=== PATIENT | female | born 1950 | race African-American/Black ===

== ENCOUNTER 2022-08-01 22:00 | Inpatient (IN) | payer MEDICARE, MEDICAID ==
[~2022-08-01] VITALS: Ht 170.2 cm; Wt 64.4 kg
[~2022-08-01 22:00] MED LIST: AMLO10TA4 PO; LEVO25TA7 PO
[2022-08-01 23:25] LABS: CHLORIDE 109 mEq/L (98-107)
[2022-08-01 23:52] LABS: EOSINOPHILS % 3.3 % (0.0-5.0); HEMATOCRIT. 40.7 % (36.0-48.0); HEMOGLOBIN. 13.6 g/dL (12.0-16.0); LYMPHOCYTES % 34.2 % (20.0-50.0); MEAN CORPUSCULAR VOLUME 98.9 fL (81.0-99.0); MEAN PLATELET VOLUME 9.2 fl (7.4-10.4); MONOCYTES % 5.9 % (2.0-8.0); NEUTROPHILS % 55.6 % (40.0-76.0); PLATELET 243 x1000/uL (130-400); RED BLOOD CELL COUNT 4.12 mill/uL (4.2-5.4); RED CELL DISTRIBUTION WIDTH 14.7 % (11.6-14.6)
[2022-08-02] MEDS ORDERED: ASPIRIN 325MG EC TABLET PO ONE (01:45)
[2022-08-02] MEDS ORDERED: ONDANSETRON HCL 4MG/2ML INJ IV PRN (15:30)
[2022-08-02] MEDS ORDERED: ACETAMINOPHEN 325MG TABLET PO PRN (15:30)
[2022-08-02] MEDS ORDERED: HYDRALAZINE 20MG/ML VIAL IV PRN (15:30)
[2022-08-02] MEDS: ENOXAPARIN 40MG/0.4ML SYR SUBCUT SCH (15:30)
[2022-08-02] MEDS ORDERED: IPRATROPIUM/ALBUTEROL 0.5-3(2.5)MG/3ML NEB HHN PRN (15:30)
[2022-08-02 16:17] LABS: T4 FREE 0.91 ng/dL (0.76-1.46)
[2022-08-02] MEDS ORDERED: ALBUTEROL (0.083%) 2.5MG/3ML NEB HHN PRN (17:45)
[2022-08-02] MEDS ORDERED: IPRATROPIUM BROMIDE (0.02%) 0.5MG/2.5ML NEB HHN PRN (17:45)
[2022-08-02 18:09] VITALS: BP 178/102
[2022-08-02 18:11] VITALS: BP 178/102
[2022-08-02 20:00] VITALS: BP 160/92
[2022-08-03] VITALS: BP 168/93
[2022-08-03 01:10] LABS: CREATINE KINASE MB FRACTION 1.6 ng/mL (0.5-3.6)
[2022-08-03 04:00] VITALS: BP 152/97
[2022-08-03 05:57] LABS: CREATINE KINASE MB FRACTION 1.5 ng/mL (0.5-3.6)
[2022-08-03] MEDS ORDERED: LEVOTHYROXINE SODIUM 175MCG TABLET PO SCH (06:30)
[2022-08-03 08:00] VITALS: BP 170/102
[2022-08-03 12:00] VITALS: BP 172/114
[2022-08-03] MEDS ORDERED: LOSARTAN POTASSIUM 50 MG TABLET PO SCH (12:15)
[2022-08-03] MEDS: ENOXAPARIN 40MG/0.4ML SYR SUBCUT SCH (15:31)
[2022-08-03] MEDS ORDERED: AMLODIPINE 5MG TABLET PO SCH (15:40)
[2022-08-03 16:00] VITALS: BP 144/102
[2022-08-03 17:45] VITALS: BP 144/102
== END 2022-08-03 18:36 | disposition home or self-care (01) | DRG 547 ==
LOC: ER 22:57 → MICUSO 08-02 01:56 → EDBEDREQ 08-02 02:17 → 7WST 08-02 17:36
PROVIDERS: ADMIT Internal Medicine; ATTEND Internal Medicine
PROC: 4A00X4Z Measurement of Central Nervous Electrical Activity, External Approach (ICD-10-PCS; principal; 2022-08-03)
DX: M06.9 Rheumatoid arthritis, unspecified (principal); M47.9 Spondylosis, unspecified; R53.1 Weakness; E03.9 Hypothyroidism, unspecified; I10 Essential (primary) hypertension; W18.30XA Fall on same level, unspecified, initial encounter; Y93.89 Activity, other specified; Y92.89 Other specified places as the place of occurrence of the external cause; Y99.8 Other external cause status
CPT/HCPCS: 36415; 70551; 71045; 72141; 72146; 72148; 80053; 80061; 82550; 82553; 83880; 84439; 84443; 84484; 85025; 93005; 93880; 95816; 97162; 99285; J0360; J1650